=== PATIENT | female | born 1995 | race Hispanic/Latino ===

== ENCOUNTER 2025-08-17 11:58 | Outpatient (CLI) | payer OTHER | END 2025-08-17 11:59 | disposition home or self-care (01) | LOC: CSHLAB 11:58 | PROVIDERS: ATTEND Obstetrics & Gynecology | DX: Z53.9 Procedure and treatment not carried out, unspecified reason (principal) | CPT/HCPCS: 85014; 85018; 85049; 86780; 86850; 86900; 86901; 87340 ==